=== PATIENT | male | born 1975 | race Caucasian/White ===

== ENCOUNTER 2021-10-22 11:40 | Observation (INO) ==
[2021-10-22 12:04] LABS: Basophils % 0.6 % (0.0-0.8); Eosinophils # 0.2 10*3/uL (0.0-0.87); Eosinophils % 2.5 % (0.00-10.9); Hematocrit 47.2 VOL% (42.0-52.0); Hemoglobin 16.3 GM/DL (14.0-18.0); Immature Granulocytes % 0.4 %; Immature Granulocytes Absolute 0.03 #; Lymphocytes # 2.3 10*3/uL (1.4-4.0); Lymphocytes % 34.1 % (21.2-54.2); Mean Corpuscular HGB Conc 34.5 GM/DL (32-36); Mean Corpuscular Volume 92.4 FL (87-102); Mean Platelet Volume 10.6 FL (9.6-12.0); Monocytes # 0.6 10*3/uL (0.11-0.8); Monocytes % 8.9 % (1.7-12.7); Neutrophils % 53.5 % (38.7-73.9); Platelet Count 174 T/CUMM (130-400); Red Blood Count 5.11 MC/CUMM (3.8-5.5); Red Cell Distribution Width 13.9 % (9.3-17.3); White Blood Count 6.7 T/CUMM (4-12)
[2021-10-22 12:37] LABS: Albumin 4.4 G/DL (3.4-5.0); Bilirubin,Total 0.8 MG/DL (0.20-1.00); Osmolality,Calculated 276.8 MOS/KG (273-304); Total Protein 7.4 G/DL (6.4-8.2)
[2021-10-22] MEDS ORDERED: KETOROLAC 30 MG/1 ML VIAL IV STA (15:13)
[2021-10-22 17:16] LABS: RBC,Urine 2 /HPF (0-4)
[2021-10-22 17:18] LABS: Bilirubin,Urine Negative (Negative); Blood, Urine Negative (Negative); Glucose,Urine (UA) >=1000 mg/dL (Negative); Ketones,Urine Negative (Negative); Nitrite,Urine Negative (Negative); Protein,Urine Negative (Negative); Urine Appearance Clear (Clear); Urine Color Yellow (Yellow); Urine Urobilinogen 0.2 eU/dL (<2.0)
[2021-10-22] MEDS ORDERED: ACETAMINOPHEN 325 MG TABLET PO PRN (18:08)
[2021-10-22] MEDS ORDERED: ZALEPLON 5 MG CAPSULE PO PRN (18:08)
[2021-10-22] MEDS ORDERED: guaiFENesin/DM ER 600-30 MG TABLET PO PRN (18:08)
[2021-10-22] MEDS ORDERED: hydrALAZINE 20 MG/1 ML VIAL IV PRN (18:08)
[2021-10-22] MEDS ORDERED: ONDANSETRON 4 MG/2 ML VIAL IV PRN (18:08)
[2021-10-22] MEDS ORDERED: NICOTINE 21 MG/24 HR PATCH TRANSDERM PRN (18:08)
[2021-10-22] MEDS ORDERED: diphenhydrAMINE CAP 25 MG CAPSULE PO PRN (18:08)
[2021-10-22] MEDS ORDERED: GLUCAGON 1 MG VIAL IM PRN (18:08)
[2021-10-22] MEDS ORDERED: DEXTROSE 10% 250 ML BAG IV PRN (21:03)
[2021-10-22] MEDS ORDERED: DEXTROSE 50% 25 GM/50 ML VIAL IV PRN (21:30)
[2021-10-22] MEDS: MORPHINE 2 MG/1 ML SYRINGE IV PRN (22:34)
[2021-10-23] MEDS: MORPHINE 2 MG/1 ML SYRINGE IV PRN (04:37)
[2021-10-23 05:40] LABS: Basophils # 0.1 10*3/uL (0.0-0.2); Basophils % 0.6 % (0.0-0.8); Eosinophils # 0.3 10*3/uL (0.0-0.87); Eosinophils % 3.7 % (0.00-10.9); Hematocrit 46.9 VOL% (42.0-52.0); Hemoglobin 15.7 GM/DL (14.0-18.0); Immature Granulocytes % 0.4 %; Immature Granulocytes Absolute 0.03 #; Lymphocytes # 2.3 10*3/uL (1.4-4.0); Mean Corpuscular HGB Conc 33.5 GM/DL (32-36); Mean Corpuscular Volume 95.3 FL (87-102); Mean Platelet Volume 11.3 FL (9.6-12.0); Monocytes # 0.7 10*3/uL (0.11-0.8); Monocytes % 9.5 % (1.7-12.7); Neutrophils % 55.8 % (38.7-73.9); Platelet Count 177 T/CUMM (130-400); Red Blood Count 4.92 MC/CUMM (3.8-5.5); Red Cell Distribution Width 14.2 % (9.3-17.3); White Blood Count 7.8 T/CUMM (4-12)
[2021-10-23 05:55] LABS: Calcium 9.2 MG/DL (8.5-10.1); Osmolality,Calculated 277.7 MOS/KG (273-304); Potassium 3.7 MMOL/L (3.5-5.1)
[2021-10-23] MEDS: INSULIN LISPRO 100 UNIT/ML SUBCUT SCH ×3 (08:47→17:52)
[2021-10-23] MEDS ORDERED: PANTOPRAZOLE 40 MG TABLET PO SCH (09:00)
[2021-10-23] MEDS ORDERED: KETOROLAC 30 MG/1 ML VIAL IV ONE (09:54)
[2021-10-23] MEDS ORDERED: methylPREDNISolone SOD SUC 40 MG/1 ML VIAL IV ONE (10:00)
[2021-10-23 16:46] VITALS: BP 129/79
[2021-10-23] MEDS ORDERED: ASPIRIN EC 81 MG TABLET PO SCH (21:00)
[2021-10-23] MEDS ORDERED: carvediloL 25 MG TABLET PO SCH (21:00)
[2021-10-23] MEDS ORDERED: RANOLAZINE 500 MG TABLET PO SCH (21:00)
[2021-10-24] MEDS ORDERED: hydroCHLOROthiazide 12.5 MG CAPSULE PO SCH (09:00)
[2021-10-24] MEDS ORDERED: ROSUVASTATIN 10 MG TABLET PO SCH (09:00)
[2021-10-24] MEDS ORDERED: DILTIAZEM CD 180 MG CAPSULE PO SCH (09:00)
[2021-10-24] MEDS ORDERED: OLMESARTAN 20 MG TABLET PO SCH (09:00)
== END 2021-10-23 17:05 | disposition home or self-care (01) ==
LOC: N.ED 11:40 → N.EDINP 11:40 → N.TELES 21:21
PROVIDERS: ADMIT Family Medicine; ATTEND Family Medicine